=== PATIENT | female | born 1970 ===

== ENCOUNTER 2024-09-08 19:45 | Inpatient (IN) | payer OTHER, SELFPAY ==
[2024-09-08 23:24] VITALS: BMI 19.4
[2024-09-08] MEDS ORDERED: Ondansetron PF 4 MG/2 ML Vial IVP PRN (23:54)
[2024-09-09] MEDS: Oseltamivir 75 MG CAP PO SCH ×2 (00:22→08:57)
[2024-09-09] MEDS: Benzonatate 100 MG CAP PO PRN (00:56)
[2024-09-09] MEDS: guaiFENesin/DM ER PO SCH ×2 (00:56→08:57)
[2024-09-09] MEDS: Ipratropium/Albuterol 3 ML NEB NEB SCH (00:59)
[2024-09-09] MEDS: methylPREDNISolone Sod Succ 40 MG VIAL IVP SCH (05:11)
[2024-09-09 05:15] LABS: #Basophils Less than 0.03 10x3/uL (0.0-0.2); #Eosinophils Less than 0.03 10x3/uL (0.0-0.7); %Monocytes 5.6 % (0.0-10.0); Hematocrit 40.3 % (36.0-47.0); Hemoglobin 13.1 g/dL (12.0-16.0); Mean Corpuscular HGB CONC 32.5 g/dL (32.0-36.0); Mean Corpuscular Volume 89.4 fL (78.0-98.0); Mean Platelet Volume 9.1 fL (7.4-10.4); Platelet Count 141 10x3/uL (130-400); Red Blood Cell (RBC) Count 4.51 mill/uL (4.20-5.40)
[2024-09-09 05:56] LABS: Anion Gap 12 mmol/L (10-20); BUN (Urea Nitrogen) 12 mg/dL (9.8-20.1); Calc. Creatinine Clearance 87 mL/min (70-130); Calcium 8.1 mg/dL (7.8-10.44); Carbon Dioxide 26 mmol/L (22-29); Chloride 106 mmol/L (98-107); Estimated GFR 105; Glucose 181 mg/dL (70-105); Potassium 4.2 mmol/L (3.5-5.1); Sodium 140 mmol/L (136-145)
[2024-09-09] MEDS: Mometasone 200 MCG/Formoterol 5 MCG 120 PUFF INHALER INH SCH (06:58)
[2024-09-09 07:34] LABS: Actual Bicarbonate (HCO3v) 25.3 mEq/L (22-28); Base Excess -0.5 mEq/L (-2.0 to +3.0); Calcium, Ionized (venous) 1.11 mmol/L (1.16-1.32); Chloride (VBG) 103 mmol/L (98-106); Hematocrit-VBG 42 % (36.0-47.0); Hemoglobin (Hb) 14.2 g/dL (11.7-16.0); Potassium (VBG) 4.22 mmol/L (3.70-5.30); Sodium 137 mmol/L (133-146)
[2024-09-09] MEDS: Pantoprazole 40 MG DR.TAB PO SCH (08:57)
[2024-09-09] MEDS: Doxycycline 100 MG CAP PO SCH (08:57)
[2024-09-09] MEDS: Enoxaparin 40 MG (0.4 mL) SYRINGE SC SCH (09:00)
[2024-09-09] MEDS ORDERED: Iopamidol-370 76% 500 ML MDV (1 ML CHARGE) ONE (09:26)
[2024-09-10 05:39] LABS: #Basophils Less than 0.03 10x3/uL (0.0-0.2); #Eosinophils Less than 0.03 10x3/uL (0.0-0.7); %Basophils 0.1 % (0.0-1.0); %Lymphocytes 10.5 % (21.0-51.0); %Monocytes 9.1 % (0.0-10.0); %Neutrophils 79.8 % (42.0-75.0); Hemoglobin 12.6 g/dL (12.0-16.0); Mean Corpuscular HGB CONC 33.2 g/dL (32.0-36.0); Mean Corpuscular Hemoglobin 29.2 pg (27.0-31.0); Mean Corpuscular Volume 88.2 fL (78.0-98.0); Mean Platelet Volume 9.1 fL (7.4-10.4); Platelet Count 154 10x3/uL (130-400); RBC Distribution Width 13.6 % (11.5-14.5); Red Blood Cell (RBC) Count 4.31 mill/uL (4.20-5.40)
[2024-09-10 05:48] LABS: Chloride 107 mmol/L (98-107); Sodium 140 mmol/L (136-145)
[2024-09-10 05:49] LABS: Calcium 8.3 mg/dL (7.8-10.44); Glucose 175 mg/dL (70-105)
[2024-09-10 05:51] LABS: Anion Gap 10 mmol/L (10-20); Carbon Dioxide 27 mmol/L (22-29)
[2024-09-10 05:53] LABS: BUN (Urea Nitrogen) 19 mg/dL (9.8-20.1); Calc. Creatinine Clearance 94 mL/min (70-130); Estimated GFR 107
[2024-09-11] MEDS: Phenol 177 ML BOT PO SCH (00:55)
[2024-09-11] MEDS: Nicotine 14 MG PATCH TD SCH (05:40)
[2024-09-11] MEDS: Benzocaine/Menthol 1 LOZ LOZ PO PRN (05:49)
[2024-09-11 07:22] LABS: #Basophils Less than 0.03 10x3/uL (0.0-0.2); #Eosinophils Less than 0.03 10x3/uL (0.0-0.7); %Basophils 0.1 % (0.0-1.0); %Lymphocytes 20.4 % (21.0-51.0); %Monocytes 8.6 % (0.0-10.0); %Neutrophils 70.2 % (42.0-75.0); Hematocrit 38.9 % (36.0-47.0); Hemoglobin 12.9 g/dL (12.0-16.0); Mean Corpuscular HGB CONC 33.2 g/dL (32.0-36.0); Mean Corpuscular Hemoglobin 28.9 pg (27.0-31.0); Mean Corpuscular Volume 87.2 fL (78.0-98.0); Platelet Count 160 10x3/uL (130-400); RBC Distribution Width 13.7 % (11.5-14.5); Red Blood Cell (RBC) Count 4.46 mill/uL (4.20-5.40)
[2024-09-11 07:57] LABS: Anion Gap 15 mmol/L (10-20); BUN (Urea Nitrogen) 12 mg/dL (9.8-20.1); Calc. Creatinine Clearance 94 mL/min (70-130); Calcium 8.5 mg/dL (7.8-10.44); Carbon Dioxide 28 mmol/L (22-29); Chloride 103 mmol/L (98-107); Estimated GFR 107; Glucose 110 mg/dL (70-105); Potassium 3.5 mmol/L (3.5-5.1); Sodium 142 mmol/L (136-145)
[2024-09-11 08:02] VITALS: BP 110/64; TEMP 98
== END 2024-09-11 12:32 | disposition home or self-care (01) | DRG 193 ==
LOC: T4-A 19:45
PROVIDERS: ADMIT Internal Medicine; ATTEND Hospitalist
DX: J10.1 Influenza due to other identified influenza virus with other respiratory manifestations (principal); J96.01 Acute respiratory failure with hypoxia; J45.901 Unspecified asthma with (acute) exacerbation; J44.9 Chronic obstructive pulmonary disease, unspecified; Z88.8 Allergy status to other drugs, medicaments and biological substances; Z98.890 Other specified postprocedural states; Z79.899 Other long term (current) drug therapy
CPT/HCPCS: 36415; 71275; 80048; 82805; 85025; 87081; 87430; 94640; J2919; J7620; Q9967